=== PATIENT | female | born 1950 | race Caucasian/White ===

== ENCOUNTER 2024-06-25 13:48 | Emergency (ER) | payer MEDICARE, MEDICAID, SELFPAY ==
[2024-06-25] VITALS (15 sets, daily range): BP systolic 153–183; BP diastolic 68–84; PULSE 51–64; RESP 14–16; TEMP 36.9; O2SAT 97–100; BMI 23.6
--- NOTE | 2024-06-25 14:52 | ED_ITS ---
HPI - Nausea/Vomiting/Diarrhea General Chief complaint: Nausea/Vomiting/Diarrhea Stated complaint: abd px, diarrhea, fever for almost 2 wks Time Seen by Provider: 06/25/24 14:18 Source: patient Mode of arrival: Ambulatory History of Present Illness HPI Narrative: 74-year-old female presents for nausea, abdominal cramping, intermittent diarrhea for the last 2 weeks. Patient states that every other day she will have very loose stools. She was concerned that she may have a bacterial infection. Reports subjective fevers, no measured temperature. Related Data Previous Rx's Medication Instructions Recorded diazepam 5 mg tablet (Valium) 5 mg PO HS #30 tabs 03/25/17 lidocaine HCl 2 % mucosal jelly 30 ml topical PRN PRN #1 mL 06/13/17 diphenoxylate-atropine 2.5 0 PO PRN PRN #30 tabs 06/23/17 mg-0.025 mg tablet acyclovir 800 mg tablet 800 mg PO SEE INSTRUCTIONS #30 tabs 08/07/17 estradiol 0.01% (0.1 mg/gram) 1 gm vaginal 2XWKLY #1 tube 08/13/17 vaginal cream (Estrace) Allergies Allergy/AdvReac Type Severity Reaction Status Date / Time No Known Drug Allergies Allergy Verified 06/25/24 14:53 Patient History Social History Smoking Status: Never smoker Smoking Status: Never smoker alcohol intake frequency: holidays/special occasions only Substance Use Type: does not use Exam Initial Vital Signs Initial Vital Signs: Vital Signs Temperature 98.5 F 06/25/24 13:54 Pulse Rate 53 L 06/25/24 13:54 Respiratory Rate 16 06/25/24 13:54 Blood Pressure 177/84 H 06/25/24 13:54 Pulse Oximetry 100 06/25/24 13:54 Oxygen Delivery Method Room Air 06/25/24 13:54 Const: Awake, alert, no acute distress, nontoxic appearing Cardiac: regular rate, regular rhythm RESP: unlabored, clear bilaterally, no wheezing GI: Soft, nontender, nondistended, no rebound, no guarding Skin: Warm, Dry, intact, no rashes Neuro: AO x3, CN II-XII grossly intact, moves all extremities Course Orders Ordered: Discontinued Medications Sodium Chloride (Normal Saline 0.9%) 1,000 mls @ 1,000 mls/hr IV BOLUS ONE Stop: 06/25/24 15:50 Last Infusion: 06/25/24 17:19 Dose: Infused Documented By: Admin: 06/25/24 15:36 Dose: 1,000 mls/hr Documented By: KENYATTA Vital Signs Vital signs: Vital Signs - 8 hr 06/25/24 13:54 06/25/24 14:19 06/25/24 14:19 Temperature 98.5 F Pulse Rate 53 L 53 L Respiratory Rate 16 Blood Pressure 177/84 H 173/74 H Pulse Oximetry 100 99 Oxygen Delivery Method Room Air 06/25/24 14:30 06/25/24 14:31 06/25/24 14:31 Temperature Pulse Rate 54 L 52 L Respiratory Rate Blood Pressure 153/70 H Pulse Oximetry 97 98 Oxygen Delivery Method 06/25/24 15:00 06/25/24 15:00 Temperature Pulse Rate 64 Respiratory Rate Blood Pressure 162/72 H Pulse Oximetry 98 Oxygen Delivery Method MDM - Nausea/Vomiting/Diarrhea Differential Diagnosis Differential diagnosis: Likely traveler's diarrhea, food poisoning and gastroenteritis Lab Data 06/25/24 15:30 06/25/24 15:30 Labs: Lab Results 06/25/24 06/25/24 Range/Units 15:25 15:30 WBC 7.9 (4.5-11.0) X10^3/uL RBC 4.21 (4.0-5.2) X10^6/uL Hgb 12.6 (12.0-16.0) g/dL Hct 37.3 (36-46) % MCV 88.6 (80-100) fL MCH 29.9 (26-34) PG MCHC 33.8 (30-36) % RDW 14.3 (11.6-14.8) % Plt Count 232 (150-400) X10^3/uL Neut % (Auto) 60.0 (50-75) % Lymph % (Auto) 28.3 (25-40) % Mcminn % (Auto) 5.9 (3-14) % Eos % (Auto) 4.6 H (2-4) % Baso % (Auto) 1.2 (0-2) % Neut # (Auto) 4700 (3414-4574) /uL Lymph # (Auto) 2200 (9472-0133) /uL Mcminn # (Auto) 500 (0-900) /uL Eos # (Auto) 400 (0-450) /uL Baso # (Auto) 100 (0-100) /uL Sodium 139 (137-145) mmol/L Potassium 4.0 (3.4-5.1) mmol/L Chloride 108 H (98-107) mmol/L Carbon Dioxide 24 (22-32) mmol/L BUN 17 (7-17) mg/dL Creatinine 0.66 (0.52-1.04) mg/dL Estimated GFR > 60 (>60) mL/min BUN/Creatinine Ratio 25.8 H (6-22) Glucose 91 (80-110) mg/dL Calcium 9.0 (8.4-10.2) mg/dL Magnesium 2.2 (1.6-2.3) mg/dL Total Bilirubin 0.5 (0.2-1.3) mg/dL AST 22 (14-36) IU/L ALT 14 (<35) IU/L Alkaline Phosphatase 62 (38-126) U/L Total Protein 7.7 (6.3-8.2) g/dL Albumin 4.6 (3.5-5.0) g/dL Globulin 3.1 (1.7-4.1) g/dL Albumin/Globulin Ratio 1.5 (1.0-2.8) Lipase 54 (23-300) U/L Urine RBC None seen (0-5/HPF) Urine WBC None seen (0-5/HPF) Ur Squamous Epith Cells None seen (0-5/HPF) Urine Bacteria None seen (None) Ur Culture Indicated? Cult not indicated Vol Urine Centrifuged 10ml (spun) Urine Dip Bedside Urine Glucose Negative Bedside Urine Bilirubin - Negative Bedside Urine Ketone - Negative Urine Specific Colbert 1.020 Bedside Urine Occult Blood +/- Bedside Urine Protein - Negative Bedside Urine Urobilinogen - Negative Bedside Urine Nitrite - Negative Bedside Urine Leukocytes - Negative Esterase Imaging Data CT scan - abdomen/pelvis: Radiologist's Impression: PROCEDURE: CT ABDOMEN PELVIS W CON INDICATIONS: 2 WKS ABD PAIN, DIARRHEA, FEVERS TECHNIQUE: After the administration of intravenous contrast, axial sections acquired from the lung bases to the pubic symphysis. Coronal and sagittal reformats were performed. For radiation dose reduction, the following was used: automated exposure control, adjustment of mA and/or kV according to patient size. COMPARISON: None. FINDINGS: Image quality: Diagnostic. Lower Chest: No significant findings. ABDOMEN: Liver: No solid mass. Gallbladder: No radiopaque gallstones or wall thickening. Biliary ducts: No biliary dilation. Pancreas: No ductal dilation. Spleen: Size is within normal limits. Adrenal Glands: No adrenal nodules. Kidneys and Ureters: No hydronephrosis. No solid mass. No complex renal cystic lesion which requires follow up. Stomach and Bowel: Normal colonic caliber, without significant wall thickening. Mild diverticulosis without evidence of acute diverticulitis. Peritoneum: No abnormal intraperitoneal fluid. No free air. Ventral Wall: No significant ventral hernia. Abdominal Nodes: No retroperitoneal or mesenteric adenopathy by size criteria. Vessels: Aorta and inferior vena cava are normal in size. PELVIS: Pelvic Organs: Unremarkable. Bladder: No bladder wall thickening, accounting for underdistention. Pelvic Nodes: No enlarged lymph nodes. Miscellaneous: No inguinal hernias are seen. Bones: No aggressive osseous abnormality. Lumbar degenerative change. Canal stenosis at L4-L5. IMPRESSION: 1. No acute abdominal process. 2. No acute bowel pathology. 3. Sigmoid diverticulosis without evidence of acute diverticulitis. 4. Incidental note made of lumbar canal stenosis at L4-L5. Dictated by: Remigio Hwang M.D. on 06/25/2024 at 17:05 Approved by: Remigio Hwang M.D. on 06/25/2024 at 17:07 [facility] Narrative Medical decision making narrative: Two weeks of symptoms. Patient states that she was not had primary care in several years because after COVID-19 she went and lived in [place] for several years. Abdomen is soft, no significant tenderness to light or deep palpation. Since patient was 74 years old and has reported symptoms for [address] will be ordered. Patient given specimen cup for GI sample, however she states that because she had diarrhea yesterday she will not be able to provide a sample today. Laboratory work reviewed, no acute abnormalities identified. CT of the abdomen and pelvis with contrast shows no acute process. Incidental diverticulosis noted without diverticulitis. With no leukocytosis, no GI stool sample to suggest pathogen no empiric antibiotic treatment is warranted at this time. Discharge Plan Departure Patient Disposition: Home Clinical Impression: Diarrhea Instructions: DI for Diarrhea and Traveler's Diarrhea -- Adult Activity Restrictions/Additional Instructions: Your blood work and CT did not show any abnormalities to explain your pain or diarrhea. Your electrolytes are normal, and your CT did not show any infection or inflammation. You may try Imodium as needed for your diarrhea. If this does not improve I recommend following up with Gastroenterology, and a referral has been provided. It would also be beneficial for you to follow up with a primary care doctor Prescriptions: No Action diazepam [Valium] 5 MG tablet 5 mg PO HS Qty: 30 0RF lidocaine HCl 30 ML jelly 30 ml Topical PRN PRNQty: 1 5RF diphenoxylate-atropine 2.5 MG/0.025 MG tablet 0 PO PRN PRNQty: 30 0RF acyclovir 800 MG tablet 800 mg PO SEE INSTRUCTIONS Qty: 30 0RF estradiol [Estrace] 0.01 % cream 1 gm Vaginal 2XWKLY Qty: 1 0RF Referrals: Darrian Montanez MD [Non-Staff] - Miscellaneous,MD Kt [Primary Care Provider] - Stand Alone Forms: Patient Portal/API
[2024-06-25] MEDS: SODIUM CHLORIDE 0.9% 1,000 ML 1000 ML IV (15:36)
[2024-06-25 16:03] LABS: Bacteria Urine None Seen; Culture Indicated Urine Cult Not Indicated; RBC Urine None Seen (0-5/HPF); Squamous Epithelial Cell Urine None Seen (0-5/HPF); Urine Volume 10mL (spun); WBC Urine None Seen (0-5/HPF)
[2024-06-25 16:36] LABS: Add Manual Diff / Slide Review NO; Basophils Absolute Auto 100 /uL (0-100); Basophils Percent Auto 1.2 % (0-2); Eosinophils Absolute Auto 400 /uL (0-450); Eosinophils Percent Auto 4.6 % (2-4); Hematocrit 37.3 % (36-46); Hemoglobin 12.6 g/dL (12.0-16.0); Lymphocytes Absolute Auto 2200 /uL (1100-4500); Lymphocytes Percent Auto 28.3 % (25-40); Mean Corpuscular HGB Conc 33.8 % (30-36); Mean Corpuscular Hemoglobin 29.9 PG (26-34); Mean Corpuscular Volume 88.6 fL (80-100); Monocytes Absolute Auto 500 /uL (0-900); Monocytes Percent Auto 5.9 % (3-14); Neutrophils Absolute Auto 4700 /uL (1500-7000); Platelet Count 232 X10^3/uL (150-400); Red Blood Cell Count 4.21 X10^6/uL (4.0-5.2); Red Cell Distribution Width 14.3 % (11.6-14.8); White Blood Cell Count 7.9 X10^3/uL (4.5-11.0)
[2024-06-25 16:43] LABS: Alanine Aminotransferase 14 IU/L (<35); Albumin 4.6 g/dL (3.5-5.0); Albumin Globulin Ratio 1.5 (1.0-2.8); Alkaline Phosphatase 62 U/L (38-126); Aspartate Aminotransferase 22 IU/L (14-36); BUN Creatinine Ratio 25.8 (6-22); Bilirubin Total 0.5 mg/dL (0.2-1.3); Blood Urea Nitrogen 17 mg/dL (7-17); Carbon Dioxide 24 mmol/L (22-32); Chloride 108 mmol/L (98-107); Estimated Glomerular Filt Rate > 60 mL/min (>60); Globulin 3.1 g/dL (1.7-4.1); Glucose 91 mg/dL (80-110); HEMOLYSIS < 15 (0-50); Lipase 54 U/L (23-300); Magnesium 2.2 mg/dL (1.6-2.3); Sodium 139 mmol/L (137-145); Total Protein 7.7 g/dL (6.3-8.2)
== END 2024-06-25 17:52 | disposition home or self-care (01) ==
PROVIDERS: Emergency Provider Emergency Medicine
DX: R19.7 Diarrhea, unspecified (principal); R11.0 Nausea
CPT/HCPCS: 36415; 74177; 80053; 81003; 81015; 83690; 83735; 85025; 96360; 96361; 99284; Q9967